=== PATIENT | male | born 1965 | race African-American/Black ===

== ENCOUNTER 2018-03-19 15:59 | Inpatient (IN) | payer OTHER ==
[2018-03-19 19:10] VITALS: BMI 20.7
--- NOTE | 2018-03-19 21:20 | HP ---
CIWA Score - CIWA Score Nausea/Vomitin-No Nausea/No Vomiting Muscle Tremors: None Anxiety: 6 Agitation: 6 Paroxysmal Sweats: No Perspiration Orientation: 3-Disoriented Date>2 days Tacttile Disturbances: 0-None Auditory Disturbances: 0-None Visual Disturbances: 0-None Headache: 0-None Present CIWA-Ar Total Score: 15 Admission ROS BHS - HPI Chief Complaint: SEEKING DETOX FOR WITHDRAWAL SX'S Allergies/Adverse Reactions: Allergies Allergy/AdvReac Type Severity Reaction Status Date / Time No Known Allergies Allergy Verified 03/19/18 21:13 History of Present Illness: 52 Y.O. MALE WITH LONG HX/O ALCOHOLISM HERE FOR DETOX. CLIENT IS SELF REFERRED. FIRST TIME HERE. HE IS KNOWN TO OTHER DETOX TXMENT [employer] [facility]. LAST BEING 6 MONTHS AGO. DENIES ANY SIGNIFICANT PERIOD OF CLEAN TIME. REPORTS HX/O SEIZURES, LAST BEING 3 WEEKS AGO. CLIENT REPORTS HE IS NON COMPLAINT WITH MEDS PRESCRIBED FOR IT. STATES LAST TAKEN APPROX 3 WEEKS AGO. DENIES LEGAL, SI/HI, AVH. Exam Limitations: No Limitations - Ebola screening Have you traveled outside of the country in the last 21 days: No (N) Have you had contact with anyone from an Ebola affected area: No Have you been sick,other than usual withdrawal symptoms: No Do you have a fever: No - Review of Systems Constitutional: No Symptoms Reported EENT: reports: No Symptoms Reported Respiratory: reports: No Symptoms reported Cardiac: reports: No Symptoms Reported GI: reports: No Symptoms Reported : reports: No Symptoms Reported Musculoskeletal: reports: No Symptoms Reported Integumentary: reports: [place] Neuro: reports: Seizure Endocrine: reports: No Symptoms Reported Hematology: reports: No Symptoms Reported Psychiatric: reports: other (CLIENT IS IRRITABLE AND AGGITATED) Other Systems: Reviewed and Negative Patient History - Patient Medical History Hx Anemia: No Hx Asthma: No Hx Chronic Obstructive Pulmonary Disease (COPD): No Hx Cancer: No Hx Cardiac Disorders: No Hx Congestive Heart Failure: No Hx Hypertension: No Hx Hypercholesterolemia: No Hx Pacemaker: No HX Cerebrovascular Accident: No Hx Seizures: Yes Hx Dementia: No Hx Diabetes: No Hx Gastrointestinal Disorders: No Hx Liver Disease: No Hx Genitourinary Disorders: No Hx Sexually Transmitted Disorders: No Hx Renal Disease (ESRD): No Hx Thyroid Disease: No Hx Human Immunodeficiency Virus (HIV): No Hx Hepatitis C: No Hx Depression: No Hx Suicide Attempt: No Hx Bipolar Disorder: No Hx Schizophrenia: No Other Medical History: DENIES - Patient Surgical History Past Surgical History: No - PPD History Previous Implant?: Yes Documented Results: Negative w/o proof Implanted On Prior [facility] Admission?: No PPD to be Administered?: Yes - Smoking Cessation Smoking history: Current every day smoker Have you smoked in the past 12 months: Yes Aproximately how many cigarettes per day: 10 Cigars Per Day: 0 Hx Chewing Tobacco Use: No Initiated information on smoking cessation: Yes 'Breaking Loose' booklet given: 03/19/18 - Substance & Tx. History Hx Alcohol Use: Yes Hx Substance Use: Yes Substance Use Type: Alcohol, Cocaine Hx Substance Use Treatment: Yes ([facility]) - Substances Abused VODKA Route: Oral Frequency: Daily Amount used: 1.5 PINT Age of first use: 38 Date of Last Use: 03/19/18 COCAINE Route: SNIFF Frequency: 1-3 times last 30 days Amount used: $50 Age of first use: 18 Date of Last Use: 03/18/18 Family Disease History - Family Disease History Family History: Denies Admission Physical Exam [facility] - Vital Signs Vital Signs: Vital Signs - 24 hr 03/19/18 19:07 Temperature 97.7 F Pulse Rate 83 Respiratory 19 Rate Blood Pressure 130/84 - Physical General Appearance: Yes: Appropriately Dressed, Moderate Distress, Alcohol on Breath, Tremorous (FELT), Irritable, Other (FLUSHED FACE AND ESTEFANIA COLORED SKIN) HEENTM: Yes: EOMI, Normocephalic, Normal Voice, SHILPA, Pharynx Normal, Nasal Congestion Respiratory: Yes: Chest Non-Tender, Lungs Clear, Normal Breath Sounds, No Respiratory Distress, No Accessory Muscle Use Neck: Yes: No masses,lesions,Nodules, Supple, Trachea in good position Breast: Yes: Breast Exam Deferred Cardiology: Yes: Regular Rhythm, Regular Rate, S1, S2 Abdominal: Yes: Normal Bowel Sounds, Non Tender, Flat, Soft Genitourinary: Yes: Within Normal Limits Back: Yes: Normal Inspection Musculoskeletal: Yes: full range of Motion, Gait Steady Extremities: Yes: Normal Capillary Refill, Normal Range of Motion, Non-Tender, Tremors (FELT) Neurological: Yes: Alert, Motor Strength 5/5, Other (NOT SURE OF DATE) Integumentary: Yes: Dry, Warm, Other (FLUSHED SKIN INGROWN HAIR LESION UNDER CHIN ON LEFT SIDE) Lymphatic: Yes: Within Normal Limits - Diagnostic (1) Alcohol dependence with uncomplicated withdrawal Current Visit: Yes Status: Acute (2) Nicotine dependence Current Visit: Yes Status: Chronic Qualifiers: Nicotine product type: cigarettes Substance use status: uncomplicated Qualified Code(s): F17.210 - Nicotine dependence, cigarettes, uncomplicated (3) Seizure disorder Current Visit: Yes Status: Acute (4) Non compliance w medication regimen Current Visit: Yes Status: Suspected (5) Substance induced mood disorder Current Visit: Yes Status: Suspected Cleared for Admission [facility] - Detox or Rehab [facility] Level of Care: Medically Managed Detox Regimen/Protocol: Librium Claeared for Rehab Admission: No S Breath Alcohol Content Breath Alcohol Content: 0.199 Urine Drug Screen - Results Drug Screen Negative: No Urine Drug Screen Results: PIPPA-Cocaine
[2018-03-19] MEDS ORDERED: NICOTINE POLACRILEX 2 MG GUM BUC PRN (21:36)
[2018-03-19] MEDS ORDERED: MAGNESIUM CITRATE 300 ML BOTTLE PO PRN (21:36)
[2018-03-19] MEDS ORDERED: P-EPHED 60MG/TRIPROLIDI 2.5MG TABLET PO PRN (21:36)
[2018-03-19] MEDS ORDERED: IBUPROFEN 400 MG TABLET (FP) PO PRN (21:36)
[2018-03-19] MEDS ORDERED: chlordiazePOXIDE HCL 25 MG CAPSULE PO PRN (21:36)
[2018-03-19] MEDS ORDERED: MAGNESIUM HYDROX 2400MG/30ML ORAL SUSPENSION 30 ML CUP PO PRN (21:36)
[2018-03-19] MEDS ORDERED: chlordiazePOXIDE HCL 25 MG CAPSULE PO ONE (21:36)
[2018-03-19] MEDS ORDERED: ACETAMINOPHEN 325 MG TABLET (FP) PO PRN (21:36)
[2018-03-19] MEDS ORDERED: MAG HYDROX/AL HYDROX/SIMETH 30 ML UNIT-DOSE CUP PO PRN (21:36)
[2018-03-19] MEDS ORDERED: guaiFENesin/D-METHORPHAN HB 10 ML UNIT-DOSE CUPS PO PRN (21:36)
[2018-03-19] MEDS ORDERED: LOPERAMIDE HCL 2 MG CAPSULE PO PRN (21:36)
[2018-03-19] MEDS ORDERED: MENTHOL/PHENOL 1 EACH UD MM PRN (21:36)
[2018-03-19] MEDS ORDERED: MELATONIN 5 MG TABLETS PO PRN (22:00)
[2018-03-20] MEDS: THIAMINE HCL 100 MG TABLET (FP) PO SCH ×2 (00:07→22:20)
[2018-03-20] MEDS: chlordiazePOXIDE HCL 25 MG CAPSULE PO SCH ×5 (00:07→22:20)
[2018-03-20 10:18] LABS: HEMATOCRIT 39.6 % (35.4-49); HEMOGLOBIN 13.6 GM/dL (11.7-16.9); MCH 36.4 pg (25.7-33.7); MCHC 34.2 g/dl (32.0-35.9); MEAN CELL VOLUME 106.3 fl (80-96); MEAN PLT VOLUME 8.4 fl (7.5-11.1); PLATELET COUNT 176 K/MM3 (134-434); RBC 3.73 M/mm3 (4.00-5.60); RDW 13.6 % (11.9-15.9); WHITE BLOOD COUNT 4.4 K/mm3 (4.0-10.0)
[2018-03-20 10:19] LABS: ANION GAP 4 (8-16); BLOOD UREA NITROGEN 7 mg/dL (7-18); CALCIUM 8.7 mg/dL (8.5-10.1); CHLORIDE 102 mmol/L (98-107); CO2 34 mmol/L (21-32); CREATININE 0.7 mg/dL (0.7-1.3); GLUCOSE,RANDOM 95 mg/dL (74-106); POTASSIUM 3.8 mmol/L (3.5-5.1); SGOT/AST 56 U/L (15-37); SGPT/ALT 38 U/L (12-78); SODIUM 140 mmol/L (136-145)
[2018-03-20 10:21] LABS: ALK PHOS 76 U/L (45-117); BILIRUBIN,TOTAL 0.5 mg/dL (0.2-1.0); TOT PROT 6.5 g/dl (6.4-8.2)
[2018-03-20] MEDS: PRENATAL VITAMINS W/ FOLIC ACID TABLET (FP) PO SCH (10:44)
[2018-03-20] MEDS: NICOTINE 14 MG/24 HOURS TOPICAL PATCH TD SCH (10:45)
--- NOTE | 2018-03-20 10:51 | CONSULT ---
[facility] Psychiatric Consult - Data Date of interview: 03/20/18 Admission source: [facility] Identifying data: Patient refused psychiatric interview.Nursing staff is informed.
--- NOTE | 2018-03-20 12:02 | PN ---
S CIWA - CIWA Score Nausea/Vomitin-No Nausea/No Vomiting Muscle Tremors: 4-Moderate,w/Arms Extend Anxiety: 4-Mod. Anxious/Guarded Agitation: 4-Moderately Restless Paroxysmal Sweats: 1-Minimal Palms Moist Orientation: 0-Oriented Tacttile Disturbances: 0-None Auditory Disturbances: 0-None Visual Disturbances: 0-None Headache: 0-None Present CIWA-Ar Total Score: 13 BHS Progress Note (SOAP) Subjective: ANXIETY,SWEATS, FATIGUE,DECREASED APPETITE Objective: 03/20/18 12:01 Vital Signs 03/20/18 03/20/18 03/20/18 04:30 05:00 05:30 Temperature Pulse Rate 79 79 83 Respiratory 18 18 18 Rate Blood Pressure 03/20/18 03/20/18 03/20/18 06:00 06:21 06:30 Temperature 98.3 F Pulse Rate 83 83 81 Respiratory 18 18 18 Rate Blood Pressure 138/81 03/20/18 03/20/18 03/20/18 07:00 07:30 08:00 Temperature Pulse Rate 83 85 87 Respiratory 18 18 18 Rate Blood Pressure 03/20/18 03/20/18 03/20/18 08:30 09:00 09:16 Temperature 98.9 F Pulse Rate 72 70 70 Respiratory 17 15 Rate Blood Pressure 133/86 03/20/18 09:30 Temperature Pulse Rate 82 Respiratory 15 Rate Blood Pressure Laboratory Tests 03/20/18 03/20/18 07:00 07:00 WBC 4.4 RBC 3.73 L Hgb 13.6 Hct 39.6 MCV 106.3 H MCH 36.4 H MCHC 34.2 RDW 13.6 Plt Count 176 MPV 8.4 Sodium 140 Potassium 3.8 Chloride 102 Carbon Dioxide 34 H Anion Gap 4 L BUN 7 Creatinine 0.7 Creat Clearance w eGFR > 60 Random Glucose 95 Calcium 8.7 Total Bilirubin 0.5 AST 56 H ALT 38 Alkaline Phosphatase 76 Total Protein 6.5 Albumin 3.0 L Assessment: 03/20/18 12:01 WITHDRAWAL SX Plan: CONTINUE DETOX ENSURE PLUS 120 ML PO TID
--- NOTE | 2018-03-20 12:07 | EKG ---
Test Reason : Blood Pressure : / mmHG Vent. Rate : 060 BPM Atrial Rate : 060 BPM P-R Int : 110 ms QRS Dur : 082 ms QT Int : 390 ms P-R-T Axes : -29 -40 047 degrees QTc Int : 390 ms SINUS RHYTHM WITH SHORT NV LEFT AXIS DEVIATION ABNORMAL ECG NO PREVIOUS ECGS AVAILABLE Confirmed by RAMIRO KAISER MD ([id number]) on 03/20/2018 12:07:31 PM Referred By: Confirmed By:RAMIRO KAISER MD
[2018-03-20 15:31] LABS: URINE APPEARANCE CLEAR; URINE BILIRUBIN NEGATIVE (<2.0 mg/dL); URINE COLOR YELLOW; URINE GLUCOSE (UA) NEGATIVE (NEGATIVE); URINE KETONE NEGATIVE (NEGATIVE); URINE LEUK ESTERASE NEGATIVE (NEGATIVE); URINE NITRITE NEGATIVE (NEGATIVE); URINE PROTEIN NEGATIVE (NEGATIVE); URINE UROBILINOGEN NEGATIVE mg/dL (0.2-1.0)
[2018-03-21] MEDS: chlordiazePOXIDE HCL 25 MG CAPSULE PO SCH ×2 (05:53→12:21)
[2018-03-21 09:38] VITALS: BP 124/75; PULSE 77; TEMP 98.4
[2018-03-21] MEDS: PRENATAL VITAMINS W/ FOLIC ACID TABLET (FP) PO SCH (12:21)
[2018-03-21] MEDS: NICOTINE 14 MG/24 HOURS TOPICAL PATCH TD SCH (12:21)
--- NOTE | 2018-03-21 15:30 | PN ---
[facility] CIWA - CIWA Score Nausea/Vomitin-No Nausea/No Vomiting Muscle Tremors: None Anxiety: 4-Mod. Anxious/Guarded Agitation: 4-Moderately Restless Paroxysmal Sweats: 3 Orientation: 0-Oriented Tacttile Disturbances: 0-None Auditory Disturbances: 1-Very Mild Visual Disturbances: 2-Mild Sensitivity Headache: 0-None Present CIWA-Ar Total Score: 14 BHS Progress Note (SOAP) Subjective: Anxiety, Sweating, Fatigue. Objective: PATIENT A & O X 3, OBSERVED AMBULATING ON UNIT. NO ACUTE DISTRESS. 03/21/18 15:30 Vital Signs Temperature 98.4 F 03/21/18 09:37 Pulse Rate 77 03/21/18 09:37 Respiratory Rate 18 03/21/18 09:37 Blood Pressure 124/75 03/21/18 09:37 O2 Sat by Pulse Oximetry (%) Laboratory Tests 03/19/18 03/20/18 03/20/18 11:30 07:00 07:00 WBC 4.4 RBC 3.73 L Hgb 13.6 Hct 39.6 MCV 106.3 H MCH 36.4 H MCHC 34.2 RDW 13.6 Plt Count 176 MPV 8.4 Sodium 140 Potassium 3.8 Chloride 102 Carbon Dioxide 34 H Anion Gap 4 L BUN 7 Creatinine 0.7 Creat Clearance w eGFR > 60 Random Glucose 95 Calcium 8.7 Total Bilirubin 0.5 AST 56 H ALT 38 Alkaline Phosphatase 76 Total Protein 6.5 Albumin 3.0 L Urine Color Yellow Urine Appearance Clear Urine pH 7.0 Ur Specific [place] 1.015 Urine Protein Negative Urine Glucose (UA) Negative Urine Ketones Negative Urine Blood Negative Urine Nitrite Negative Urine Bilirubin Negative Urine Urobilinogen Negative Ur Leukocyte Esterase Negative RPR Titer 03/20/18 07:00 WBC RBC Hgb Hct MCV MCH MCHC RDW Plt Count MPV Sodium Potassium Chloride Carbon Dioxide Anion Gap BUN Creatinine Creat Clearance w eGFR Random Glucose Calcium Total Bilirubin AST ALT Alkaline Phosphatase Total Protein Albumin Urine Color Urine Appearance Urine pH Ur Specific [place] Urine Protein Urine Glucose (UA) Urine Ketones Urine Blood Urine Nitrite Urine Bilirubin Urine Urobilinogen Ur Leukocyte Esterase RPR Titer Nonreactive LABS NOTED. Assessment: 03/21/18 15:30 WITHDRAWAL SYMPTOMS. Plan: CONTINUE DETOX.
--- NOTE | 2018-03-21 15:34 | DS ---
[facility] Detox Discharge Summary Admission Date: 03/19/18 Discharge Date: 03/21/18 - History Present History: Alcohol Dependence, Cocaine Dependence Additional Comments: PATIENT DOES NOT WISH TO STAY TO COMPLETE DETOX REGIMEN. RISKS OF LEAVING DETOX UNIT AGAINST MEDICAL ADVICE AND PRIOR TO COMPLETION OF DETOX REGIMEN EXPLAINED TO PATIENT. PATIENT ADVISED TO GO IMMEDIATELY TO NEAREST ER SHOULD ANY INTOLERABLE DETOX SYMPTOMS DEVELOP AT ANY TIME. PATIENT LEFT DETOX UNIT IN STABLE MEDICAL CONDITION. Pertinent Past History: Nicotine Dependence, History of Seizure Disorder. - Physical Exam Results Vital Signs: Vital Signs Temperature 98.4 F 03/21/18 09:37 Pulse Rate 77 03/21/18 09:37 Respiratory Rate 18 03/21/18 09:37 Blood Pressure 124/75 03/21/18 09:37 O2 Sat by Pulse Oximetry (%) Pertinent Admission Physical Exam Findings: WITHDRAWAL SYMPTOMS. Laboratory Tests 03/19/18 03/20/18 03/20/18 11:30 07:00 07:00 WBC 4.4 RBC 3.73 L Hgb 13.6 Hct 39.6 MCV 106.3 H MCH 36.4 H MCHC 34.2 RDW 13.6 Plt Count 176 MPV 8.4 Sodium 140 Potassium 3.8 Chloride 102 Carbon Dioxide 34 H Anion Gap 4 L BUN 7 Creatinine 0.7 Creat Clearance w eGFR > 60 Random Glucose 95 Calcium 8.7 Total Bilirubin 0.5 AST 56 H ALT 38 Alkaline Phosphatase 76 Total Protein 6.5 Albumin 3.0 L Urine Color Yellow Urine Appearance Clear Urine pH 7.0 Ur Specific [place] 1.015 Urine Protein Negative Urine Glucose (UA) Negative Urine Ketones Negative Urine Blood Negative Urine Nitrite Negative Urine Bilirubin Negative Urine Urobilinogen Negative Ur Leukocyte Esterase Negative RPR Titer 03/20/18 07:00 WBC RBC Hgb Hct MCV MCH MCHC RDW Plt Count MPV Sodium Potassium Chloride Carbon Dioxide Anion Gap BUN Creatinine Creat Clearance w eGFR Random Glucose Calcium Total Bilirubin AST ALT Alkaline Phosphatase Total Protein Albumin Urine Color Urine Appearance Urine pH Ur Specific [place] Urine Protein Urine Glucose (UA) Urine Ketones Urine Blood Urine Nitrite Urine Bilirubin Urine Urobilinogen Ur Leukocyte Esterase RPR Titer Nonreactive LABS NOTED. - Treatment Hospital Course: Detoxed Safely - Medication Discharge Medications: Ambulatory Orders NK [No Known Home Medication] 03/19/18 - Diagnosis (1) Alcohol dependence with uncomplicated withdrawal Status: Acute (2) Nicotine dependence Status: Acute Qualifiers: Nicotine product type: cigarettes Substance use status: in withdrawal Qualified Code(s): F17.213 - Nicotine dependence, cigarettes, with withdrawal (3) Non compliance w medication regimen Status: Suspected (4) Seizure disorder Status: Suspected (5) Substance induced mood disorder Status: Suspected - AMA Did Patient Leave Against Medical Advice: Yes (PATIENT DID NOT WISH TO REMAIN TO COMPLETE DETOX REGIMEN.)
[2018-03-21] MEDS ORDERED: chlordiazePOXIDE 5 MG CAPSULE PO SCH (23:00)
[2018-03-22] MEDS ORDERED: chlordiazePOXIDE HCL 10 MG CAPSULE PO SCH (23:00)
== END 2018-03-21 12:56 | disposition left against medical advice (07) | DRG 770 ==
LOC: YASAS 15:59 → Y3N 22:32
PROVIDERS: ADMIT Surgery; ATTEND Surgery
PROC: HZ2ZZZZ Detoxification Services for Substance Abuse Treatment (ICD-10-PCS; principal; 2018-03-19)
DX: F10.230 Alcohol dependence with withdrawal, uncomplicated (principal); F14.20 Cocaine dependence, uncomplicated; F17.213 Nicotine dependence, cigarettes, with withdrawal; G40.909 Epilepsy, unspecified, not intractable, without status epilepticus; F19.24 Other psychoactive substance dependence with psychoactive substance-induced mood disorder; Z91.14 Patient's other noncompliance with medication regimen
CPT/HCPCS: 36415; 71046-TC-FY; 80053; 81003; 85027; 86593; 93005; 93010